=== PATIENT | male | born 1980 | race African-American/Black ===

== ENCOUNTER 2019-11-27 12:02 | Emergency (ER) | payer OTHER ==
[~2019-11-27] VITALS: Ht 185.4 cm; Wt 119.8 kg
[2019-11-27 12:41] VITALS: BP 135/70
== END 2019-11-27 12:42 | disposition home or self-care (01) ==
LOC: M.ERS 12:02
DX: S61.211A Laceration without foreign body of left index finger without damage to nail, initial encounter (principal); W26.8XXA Contact with other sharp object(s), not elsewhere classified, initial encounter; Y93.89 Activity, other specified; Y92.89 Other specified places as the place of occurrence of the external cause; Y99.8 Other external cause status